=== PATIENT | male | born 1965 | race Hispanic/Latino ===

== ENCOUNTER 2020-07-04 21:04 | Emergency (ER) | payer BC ==
[~2020-07-04] VITALS: Ht 167.6 cm; Wt 136.1 kg
[2020-07-04] MEDS ORDERED: KETOROLAC TROMETHAMINE 30 MG/ML VIAL IV ONE (21:30)
[2020-07-04] MEDS ORDERED: DEXAMETHASONE SOD PHOS 10 MG/1 ML VIAL IV ONE (21:30)
[2020-07-04] MEDS ORDERED: CLONIDINE HCL 0.2 MG TAB PO ONE (21:30)
[2020-07-04] MEDS ORDERED: HYDROCODONE/APAP 5MG-325MG TAB PO ONE (21:30)
[2020-07-04] MEDS ORDERED: ONDANSETRON HCL INJ 2MG/ML 2ML 2 MG/ML VIAL IV ONE (21:30)
[2020-07-04] MEDS ORDERED: FAMOTIDINE 20 MG/2 ML VIAL IV ONE (21:30)
[2020-07-04] MEDS ORDERED: CLONIDINE HCL 0.1 MG TAB ONE (21:32)
[2020-07-04] MEDS ORDERED: DEXAMETHASONE SOD PHOS INJ 4 MG/ML VIAL ONE (21:33)
--- OUTSIDE RECORDS SUMMARY | 2020-07-04 21:59 | XMS REPORT | Continuity of Care Document ---
Author Author [facility] t Organization [facility] Address [address] [place] [address] Phone Unavailable Care Team Providers Care Laborer Vineyard Name Role Phone Unavailable Unavailable Payers Payer Name Policy Type Policy Number Effective Date Expiration Date S ource Problems This patient has no known problems. Allergies, Adverse Reactions, Alerts This patient has no known allergies or adverse reactions. Medications This patient has no known medications. Procedures This patient has no known procedures. Encounters Start Date/Time End Date/Time Encounter Type Admission Type [facility] Emergency Department Facility Care Department Encounter ID Source 2019-12-18 08:27:37 Outpatient [facility] [id number] 2020-01-14 06:46:00 2020-01-14 06:46:00 Outpatient [id number] [facility] 2019-08-09 20:48:00 2019-08-09 20:48:00 Emergency E [facility] [id number] [facility] Results Test Description Test Time Test Comments Results Result Comments Source - CT ORBIT/SELLA/IAC WO 2019-11-25 09:22:00 Deirdre ent Name: PAUL REED Unit No: [id number] EXAMS: CPT CODE: [id number] CT ORBIT/SELLA/[place] [address] Exam: CT of the orbits without contrast Location: A1 HISTORY: , CYST, COMPARISON: None available TECHNIQUE: Axial images of the orbits were obtained without contrast. Images were reformatted to create coronal and sagittal reconstructions . One or more of the following dose reduction techniques were used: Automated exposure control, adjustment of the mA and/or kV according to patient size, and/or utilization of iterative reconstruction technique. DLP: 737 mGy-cm. FINDINGS: The orbital turpin are intact. There is no acute fracture or dislocation. The nasal bones are intact. There any visualized massive facial bones are maintained. The globes are intact. The intraconal and extraconal connective tissues are preserved. No abnormal mass lesions or infiltration are identified. The extraocular muscles are grossly within normal limits. The orbital apices are within normal limits. The optic nerve sheaths are normal in caliber. The partially visualized prechiasmatic optic nerve optic chiasm are grossly within normal limits without obvious compression. There is partially empty sella turcica. The unopacified cavernous sinuses are grossly within normal limits. There is nasal septal deviation to the left with nasal septal spur contacting left middle turbinate. There is mucosal thickening of bilateral maxillary sinuses. Ethmoid air cells are clear. Frontal sinuses and sphenoid sinuses and respective outflow tracts are clear. IMPRESSION: 1. Unremarkable CT evaluation of the orbits. 2. Nasal septal deviation to the left with nasal septal spur contacting the left middle turbinate. 3. Mild inflammatory disease of the maxillary sinuses. at 0922 Reported and signed by: Jorgito Claudio MD Name: PAUL REED FSED Phys: [id number] - Yvonne Maier [address] : 1965 Age: 54 Sex: [place] [id number] Loc: [facility] Exam Date: 11/24/2019 Status: DEP CLI PH: FAX: PAGE 1 Signed Report (CONTINUED) Patient Name: PAUL REED Unit No: [id number] EXAMS: CPT CODE: [id number] CT ORBIT/SELLA/[place] [address] <Continued> CC: Yvonne Maier Technologist: Shirley Light CTDI: 56.50 DLP: 737.62 Trs Dt/Tm: 11/25/2019 (921) by:[email or web address] Electronic Signature Date/Time: 11/25/2019 (921)Orig Print D/T: S: 11/25/2019 (0925) Name: PAUL REED FSED Phys: [id number] - Yvonne Maier [address] : 1965 Age: 54 [place]: [place] [id number] Loc: [facility] Exam Date: 11/24/2019 Status: DEP CLI PH: FAX: PAGE 2 Signed Report
--- NOTE | 2020-07-04 22:01 | Diagnostic Imaging Report ---
History: Right-sided sciatica, back pain radiates down right leg. Comparison studies: None Technique: Axial images were obtained through the lumbar spine. Coronal and sagittal images reconstructed from the axial data. Dose modulation, iterative reconstruction, and/or weight based adjustment of the mA/kV was utilized to reduce the radiation dose to as low as reasonably achievable. Intravenous contrast: None Findings: Exam is somewhat limited by suboptimal [id number] ratio due to body habitus. Number of non-rib bearing vertebral bodies: 5 Alignment: Mild increased lordotic curvature. No subluxations. Soft tissues: No gross acute abnormalities. Dorsal paraspinal muscles: Well-preserved. No atrophy. Vertebrae: No fractures, infection or neoplasm. Degenerative changes: Normal disc height from T11 to S1. L1-L2: Patent canal and foramina. L2-L3: Patent canal and foramina. L3-L4: Mild facet arthrosis. No significant canal or foraminal stenosis per L4-L5: Disc bulge and mild facet arthrosis result in mild bilateral foraminal stenosis. No significant canal stenosis. L5-S1: Mild facet arthrosis. No significant canal or foraminal stenosis. Sacroiliac joints: Mild degenerative changes bilaterally with periarticular sclerosis and small anterior osteophytes. Incidental findings: Mild linear atelectasis or scarring at the right lung base. IMPRESSION: Mild degenerative changes with mild multilevel facet arthrosis and mild bilateral foraminal stenosis at L4-L5. No significant canal stenosis. Lumbar spine MRI could be considered to further evaluate if symptoms persist. Signed by: Dr. Gurjit Morris M.D. on 07/04/2020 9:58 PM
[2020-07-04 22:22] VITALS: BP 186/102
[2020-07-04] MEDS ORDERED: ZANAFLEX4 MG PO (22:35)
[2020-07-04] MEDS ORDERED: IBUPROFEN IB200 MG PO (22:35)
--- NOTE | 2020-07-04 22:37 | Emergency Department Note ---
History of Present Illnes History of Present Illness Chief Complaint: Back Pain History of Present Illness This is a 54 year old male morbidly obese, ex-football player, hx DJD waiting for knee replacement c/o lower back pain right then left THAT RADIATES DOWN RIGHT LEG X2 WEEKS, PT STATED HE WAS WORKING OUT AT THE GYM AND TWISTED SOMETHING, PT STATED PAIN IS GETTING PROGRESSIVELY WORSE AND MAKING IT HARD TO WALK . Historian: Patient Arrival Mode: Car Onset (how long ago): week(s) Radiation: Reports back, Reports extremity Severity: moderate Onset quality: gradual Timing of current episode: constant Progression: worsening Chronicity: new Relieving factors: immobilization Exacerbating factors: movement Associated symptoms: Reports denies other symptoms Treatments prior to arrival: none Past Medical/Family History Physician Review I have reviewed the patient's past medical and family history. Any updates have been documented here. Past Medical History Recent Fever: No Clinical Suspicion of Infectio: No New/Unexplained Change in Ment: No Past Medical History: Hypertension Other Surgery: LEFT LEG LEFT CLUB FOOT Social History Smoking Cessation: Current every day smoker Counseling Performed: Yes Alcohol Use: None Any Illegal Drug Use: No Physically hurt or threatened: No Other Any Pre-Existing Lines (PICC,: No Review of Systems Review of Systems Constitutional: Reports no symptoms EENTM: Reports no symptoms Cardiovascular: Reports no symptoms Respiratory: Reports no symptoms Gastrointestinal: Reports no symptoms Genitourinary: Reports no symptoms Integumentary: Reports no symptoms Neurological: Reports no symptoms Psychological: Reports no symptoms Endocrine: Reports no symptoms Hematological/Lymphatic: Reports no symptoms Physical Exam Related Data Allergies: Coded Allergies: lisinopril (Verified Allergy, Severe, 07/04/20) Triage Vital Signs Vital Signs Date Time Temp Pulse Resp B/P (MAP) Pulse Ox O2 Delivery O2 Flow Rate FiO2 07/04/20 21:05 97.3 102 22 241/133 98 Room Air Vital signs reviewed: Yes (HTN) Physical Exam CONSTITUTIONAL Constitutional: Present well-developed, Present well-nourished HENT HENT: Present normocephalic, Present atraumatic, Present oropharynx clear/moist, Present nose normal HENT L/R: Present left ext ear normal, Present right ext ear normal EYES Eyes: Reports PERRL, Reports conjunctivae normal NECK Neck: Present ROM normal PULMONARY Pulmonary: Present effort normal, Present breath sounds normal CARDIOVASCULAR Cardiovascular: Present regular rhythm, Present heart sounds normal, Present capillary refill normal, Present normal rate GASTROINTESTINAL Abdominal: Present soft, Present nontender, Present bowel sounds normal GENITOURINARY Genitourinary: Present exam deferred SKIN Skin: Present warm, Present dry MUSCULOSKELETAL Musculoskeletal: Present ROM normal, Present deformity (right knee), Present tenderness (lower back) NEUROLOGICAL Neurological: Present alert, Present oriented x 3, Present no gross motor or sensory deficits, Present other (positive straight leg raise on the right) PSYCHOLOGICAL Psychological: Present mood/affect normal, Present judgement normal Results Laboratory Lab results reviewed: Yes Laboratory comments wbc 14, c/w acute phase reactive leukocytosis, he does not have fever, BP high doubt infection Imaging Imaging results reviewed: Yes Imaging Comments DJD Assessment & Plan Medical Decision Making [facility] of the spine Reassessment Reassessment time: 22:31 Reassessment no pain now, BP better Assessment & Plan Final Impression: (1) Acute pain due to trauma (2) Hypertensive urgency Depart Disposition: HOME, SELF-CARE Last Vital Signs Date Time Temp Pulse Resp B/P (MAP) Pulse Ox O2 Delivery O2 Flow Rate FiO2 07/04/20 22:22 100 20 97 07/04/20 21:31 241/133 07/04/20 21:05 97.3 Room Air Home Meds Active Scripts Ibuprofen (IBUPROFEN IB) 200 Mg Tablet, 3 TAB PO Q6H PRN for pain, #90 Prov:REINALDO HOLLAND MD 07/04/20 Tizanidine Hcl (ZANAFLEX) 4 Mg Tablet, 1 TAB PO Q8H PRN for back pain, #30 Prov:REINALDO HOLLAND MD 07/04/20 Medications in the ED Dexamethasone Sodium Phosphate 8 mg ONCE ONCE IV Last administered on 07/04/20at 21:31; Admin Dose 8 MG; Start 07/04/20 at 21:30; Stop 07/04/20 at 21:36; Status DC Acetaminophen/ Hydrocodone Bitart 2 ea ONCE ONCE PO ; Start 07/04/20 at 21:30; Stop 07/04/20 at 21:36; Status DC Ketorolac Tromethamine 30 mg ONCE ONCE IV Last administered on 07/04/20at 21:31; Admin Dose 30 MG; Start 07/04/20 at 21:30; Stop 8/21/20 at 21:36; Status DC Ondansetron HCl 4 mg ONCE ONCE IV Last administered on 07/04/20at 21:31; Admin Dose 4 MG; Start 07/04/20 at 21:30; Stop 07/04/20 at 21:36; Status DC Famotidine 20 mg ONCE ONCE IV Last administered on 07/04/20at 21:31; Admin Dose 20 MG; Start 07/04/20 at 21:30; Stop 07/04/20 at 21:36; Status DC Clonidine HCl 0.2 mg ONCE ONCE PO Last administered on 07/04/20at 21:31; Admin Dose 0.2 MG; Start 07/04/20 at 21:30; Stop 07/04/20 at 21:36; Status DC Clonidine HCl 0.2 mg STK-MED ONCE .ROUTE ; Start 07/04/20 at 21:32; Stop 07/04/20 at 21:27; Status DC Dexamethasone Sodium Phosphate 8 mg STK-MED ONCE .ROUTE ; Start 07/04/20 at 21:33; Stop 07/04/20 at 21:27; Status DC Physician Attestation Provider Attestation patient has no neurological deficits, walks steady gaits, can be safely d/xed REINALDO HOLLAND MD Jul 04, 2020 22:37
== END 2020-07-04 22:45 | disposition home or self-care (01) ==
LOC: FSED 21:40
DX: M54.5 Low back pain (principal); M79.604 Pain in right leg; I16.0 Hypertensive urgency; X50.1XXA Overexertion from prolonged static or awkward postures, initial encounter; Y93.B9 Activity, other involving muscle strengthening exercises; Y92.39 Other specified sports and athletic area as the place of occurrence of the external cause; I10 Essential (primary) hypertension; F17.210 Nicotine dependence, cigarettes, uncomplicated
CPT/HCPCS: 72131; 80053; 81003; 85025; 99284; J1100; J1885; J2405